=== PATIENT | female | born 1985 | race Caucasian/White ===

== ENCOUNTER 2018-02-22 21:22 | Emergency (ER) | payer SELFPAY ==
[~2018-02-22] VITALS: Ht 170.2 cm; Wt 86.2 kg
--- OUTSIDE RECORDS SUMMARY | 2018-02-22 21:23 | XMS REPORT ---
Author Author [facility] Address Unknown Phone Unavailable Care Team Providers Care [employer] Name Role Phone EFRAÍN AGUIAR Unavailable Unavailable Problems This patient has no known problems. Allergies, Adverse Reactions, Alerts This patient has no known allergies or adverse reactions. Medications This patient has no known medications. Encounters Start Date/Time End Date/Time Encounter Type Admission Type Attending Clinicians Care Facility Care Department Encounter ID 2017-09-25 05:00:23 2017-09-25 05:00:23 Emergency [facility] MED [id number] Results Test Description Test Time Test Comments Text Results Atomic Results Result Comments CT ABDOMEN/PELVIS [place] [address] Patient Name: BISI BENITEZ MR #: [id number] : 1985 Age/Sex: 32/F Req #: [id number] Adm Physician: Ordered by: EFRAÍN AGUIAR MD Report #: [id number] Location: ER Room/Bed: ___ Procedure: [id number] CT/CT ABDOMEN/PELVIS W Exam Date: 09/23/17 Exam Time: 369 REPORT STATUS: Signed EXAM: CT Abdomen and Pelvis WITH contrast INDICATION: Left-sided left lower quadrant pain. COMPARISON: None. TECHNIQUE: Abdomen and pelvis were scanned utilizing a multidetector helical scanner from the lung base to the pubic symphysis after administration of IV contrast. Coronal and sagittal reformations were obtained. Routine protocol was performed. Scan was performed when during portal venous phase. IV CONTRAST: 100 mL of Isovue-370 ORAL CONTRAST: Gastrografin RADIATION DOSE: Total DLP: 678.73 mGy*cm Estimated effective dose: (DLP x 0.015 x size factor) mSv COMPLICATIONS: None FINDINGS: LINES and TUBES: None. LOWER THORAX: Unremarkable HEPATOBILIARY: No focal hepatic lesions. No biliary ductal dilation. GALLBLADDER: No radio-opaque stones or sludge. No wall thickening. SPLEEN: No splenomegaly. PANCREAS: No focal masses or ductal dilatation. ADRENALS: No adrenal nodules KIDNEYS/URETERS: Kidneys enhance symmetrically. No hydronephrosis. No cystic or solid mass lesions. No stones. GI TRACT: Hyperenhancement and wall thickening of the heather ascending colon, transverse and proximal descending colon. Additionally, there is mild thickening of the rectum . Appendix is normal. PELVIC ORGANS/BLADDER: Unremarkable. LYMPH NODES: No lymphadenopathy. VESSELS : There is mild atherosclerotic disease in the aorta and major arterial branches. PERITONEUM / RETROPERITONEUM: No free air or fluid. BONES: Unremarkable. SOFT TISSUES: Unremarkable. IMPRESSION: 1. Findings are consistent with colitis and questionable proctitis. Signed by: Dr. Winston Allred M.D. on 09/24/2017 1:21 AM Dictated By: WINSTON TOMAS MD 0 COPY TO: EFRAÍN AGUIAR MD
[2018-02-22] MEDS ORDERED: PANTOPRAZOLE 40 MG 10ML VIAL IV STA (22:19)
[2018-02-22] MEDS ORDERED: SODIUM CHLORIDE 0.9% 1000ML 2,000 ML IV STA (22:19)
[2018-02-22] MEDS ORDERED: MORPHINE SULFATE 4 MG/ML SYR IV STA (22:19)
[2018-02-22] MEDS ORDERED: PROMETHAZINE HCL (IM) 25 MG/ML VIAL IV STA (22:19)
[2018-02-22] MEDS ORDERED: LORAZEPAM INJ 2 MG/ML VIAL IV ONE (22:30)
[2018-02-22 22:53] LABS: BASOPHILS % 0.3 % (0.0-1.0); EOSINOPHILS % 0.1 % (0.0-6.0); HEMOGLOBIN 14.7 g/dL (12.0-16.0); LYMPHOCYTES # (AUTO) 2.1 (1.0-3.2); LYMPHOCYTES % 18.5 % (18.0-39.1); MEAN CORPUSCULAR HEMOGLOBIN 31.7 pg (28-32); MEAN CORPUSCULAR VOLUME 90.7 fL (81-99); MONOCYTES # (AUTO) 0.3 (0.2-0.8); MONOCYTES % 2.9 % (4.4-11.3); NEUTROPHILS % 77.9 % (38.7-80.0); PLATELET COUNT 240 x10e3/uL (140-360); RED BLOOD COUNT 4.63 x10e6/uL (3.6-5.1); RED CELL DISTRIBUTION WIDTH 16.5 % (11.7-14.4)
[2018-02-22 22:58] LABS: INR 0.97; PROTHROMBIN TIME 12.1 seconds (11.9-14.5)
[2018-02-22 22:59] LABS: PARTIAL THROMBOPLASTIN TIME 27.3 seconds (23.8-35.5)
[2018-02-22 23:04] LABS: COLOR,URINE YELLOW (YELLOW)
[2018-02-22 23:05] LABS: CLARITY,URINE SL CLOUDY (CLEAR); LEUKOCYTE ESTERASE ,URINE NEGATIVE (NEGATIVE); NITRITE,URINE POSITIVE (NEGATIVE); PROTEIN,URINE DIPSTICK 1+ (NEGATIVE)
[2018-02-22 23:06] LABS: AMPHETAMINES SCREEN,URINE NEGATIVE (NEGATIVE); BENZODIAZEPINES SCREEN,URINE POSITIVE (NEGATIVE); BILIRUBIN,URINE 1+ (NEGATIVE); KETONES,URINE 3+ (NEGATIVE); PHENCYCLIDINE SCREEN,URINE NEGATIVE (NEGATIVE); URINE UROBILINOGEN 0.2 mg/dL (0.2 - 1)
[2018-02-22 23:07] LABS: ALBUMIN 3.1 g/dL (3.5-5.0); ALBUMIN/GLOBULIN RATIO 0.6 (0.8-2.0); ALKALINE PHOSPHATASE 124 IU/L (40-150); AMYLASE 113 U/L (25-125); ANION GAP 20.6 mmol/L (8-16); CALCIUM 8.3 mg/dL (8.4-10.2); CARBON DIOXIDE 18 mmol/L (22-29); CHLORIDE 94 mmol/L (98-107); CREATININE, SERUM 0.79 mg/dL (0.57-1.11); EST GLOMERULAR FILTRATION RATE > 60 ML/MIN (60-); GLUCOSE 96 mg/dL (74-118); LIPASE 433 U/L (8-78); SODIUM 130 mmol/L (136-145)
[2018-02-22 23:11] LABS: POTASSIUM 2.6 mmol/L (3.5-5.1)
[2018-02-22 23:30] LABS: BUN/CREATININE RATIO 3 (6-25)
[2018-02-22 23:31] LABS: BLOOD UREA NITROGEN < 2 mg/dL (7-26)
[2018-02-22 23:32] LABS: BACTERIA,URINE MANY /HPF; EPITHELIAL CELLS,URINE MODERATE /LPF; RBC,URINE 0-5 /HPF (0-5)
[2018-02-22 23:34] LABS: PREGNANCY TEST, URINE NEGATIVE (NEGATIVE)
[2018-02-22] MEDS ORDERED: POTASSIUM CHLORIDE 10MEQ/100ML 100 ML IV STA (23:57)
[2018-02-23] MEDS ORDERED: LEVOFLOXACIN 500MG/D5W 100ML 100 ML IV ONE
[2018-02-23] MEDS ORDERED: POTASSIUM CHLORIDE 20 MEQ TAB CR PO STA (00:02)
[2018-02-23] MEDS ORDERED: DIATRIZOATE MEGL/DIATRIZOA SOD 30 ML BTL PO ONE (00:18)
[2018-02-23] MEDS ORDERED: SODIUM CHLORIDE 0.9% 50ML 50 ML ONE (01:11)
[2018-02-23] MEDS ORDERED: IOPAMIDOL 370 MG/ML 200 ML INFUS..BTL INJ ONE (01:11)
[2018-02-23] MEDS ORDERED: MORPHINE SULFATE 2 MG/ML SYR ONE (02:01)
--- NOTE | 2018-02-23 02:30 | Diagnostic Imaging Report ---
EXAM: CT ABDOMEN AND PELVIS with IV CONTRAST INDICATION: Abdominal pain COMPARISON: CT of the abdomen and pelvis September 23, 2017 TECHNIQUE: The abdomen and pelvis were scanned using a multidetector helical scanner. Coronal and sagittal reformations were obtained. Routine protocol performed. IV Contrast: 100 cc Isovue-370 Oral Contrast: Gastrografin CTDIvol has been reviewed. It is below the limits set by the Radiation Protocol Committee (RPC). FINDINGS: LOWER THORAX: No consolidations LIVER: Hepatomegaly and hepatic steatosis. BILIARY: The gallbladder is unremarkable. No ductal dilation. SPLEEN: No masses PANCREAS: Edematous pancreatic tail with surrounding inflammation and unorganized fluid. No pancreatic duct dilation. ADRENALS: No nodules KIDNEYS: Symmetric perfusion. No enhancing masses. No hydronephrosis. GI TRACT: No distention, wall thickening or evidence of obstruction. VESSELS: Unremarkable PERITONEUM/RETROPERITONEUM: Unorganized fluid predominantly in the left upper abdomen and along the left retroperitoneum. LYMPH NODES: No lymphadenopathy REPRODUCTIVE ORGANS: Unremarkable BLADDER: Unremarkable SOFT TISSUES: Unremarkable BONES: No suspicious bone lesions. IMPRESSION: Findings consistent with acute interstitial edematous pancreatitis with surrounding inflammation and unorganized fluid in the left upper quadrant and along the left retroperitoneum. Signed by: Dr. Carmela Santana M.D. on 02/23/2018 2:26 AM
[2018-02-23] MEDS ORDERED: NO HOME MEDS (02:37)
[2018-02-23 03:53] VITALS: BP 119/81
[2018-02-23 07:39] LABS: ALANINE AMINOTRANSFERASE 16 IU/L (0-55)
== END 2018-02-23 04:02 | disposition home or self-care (01) ==
LOC: ER 21:22
DX: R10.10 Upper abdominal pain, unspecified (principal); R11.2 Nausea with vomiting, unspecified; N30.90 Cystitis, unspecified without hematuria; E87.6 Hypokalemia; K85.20 Alcohol induced acute pancreatitis without necrosis or infection
CPT/HCPCS: 36415; 74177; 80053; 80307; 80320; 81001; 81025; 82150; 83690; 85025; 85610; 85730; 87086; 87186; 99284; J1956; J2060; J2270; J2550; J3480; J7030; Q9967